=== PATIENT | female | born 1955 ===

== ENCOUNTER 2017-10-23 06:34 | Day surgery (SDC) | payer OTHER ==
[~2017-10-23 06:34] MED LIST: LEVSIN/SL0.125 MG SL; NORVASC2.5 MG
== END 2017-10-23 11:20 | disposition home or self-care (01) ==
LOC: AMB-ENDOS 06:34
DX: K64.0 First degree hemorrhoids (principal); K59.09 Other constipation; Z12.11 Encounter for screening for malignant neoplasm of colon